=== PATIENT | female | born 1950 | race Caucasian/White ===

== ENCOUNTER 2020-11-07 12:37 | Outpatient (CLI) | payer MEDICARE, OTHER, SELFPAY ==
--- NOTE | 2020-11-08 07:59 | ONC CON_ITS ---
Dr. Farr New Patient Note Patient: Lucinda White Unit #: [id number]: [id number] Dicatated By: Shawn Farr M.D.Date of Visit: Nov 07, 2020 Onc MED New Patient/Consult Referring Physician: Dr. Sandoval Morley M.D. History of Present Illness: Ms. Lucinda White, 70-year-old female with a history of stage I, T1BN0 (0 out of 31 lymph nodes )adenocarcinoma of the lung involving left upper lobe, underwent left upper lobectomy with mediastinal lymph node dissection on December 08, 2017 in [facility], at that time no treatment was offered but observation as per patient she was following medical oncologist in [place] saw Dr. Pozo in June 2020, as per patient her CT scan of chest done in June showed no abnormality subsequently underwent CT scan of chest on October 12, 2020 at [facility] and it shows no acute findings in the chest, there is surgical clips in the left lung from previous left upper lobectomy, no mass no pleural effusion or thickening seen. Patient said she was having issues with chronic cough and it has improved significantly since she stopped taking lisinopril. Patient denies smoking, denies alcohol use, denies any hemoptysis or hematemesis, denies any bony pain denies any jaundice denies any headaches blurred vision or double vision but some dyspnea on exertion no palpitation or chest pain. Appetite is good, weight is stable. Past Medical History: Ms. White's medical history consists of hyperlipidemia and hypertension. Past Surgical History: Ms. White's surgical/procedural history consists of bilateral total knee arthroscopy, hysterectomy, left upper lobectomy, repair of left foot fracture, and right rotator cuff repair. Medications: Atorvastatin Calcium 1 Tablet (of 20 mg) Oral daily, Baclofen 1 Tablet (of 20 mg) Oral t.i.d. PRN, Hyzaar 1 Tablet (of 50-12.5 mg) Oral daily, Meloxicam 1 Tablet (of 15 mg) Oral daily, Mirapex 1 Tablet (of 1 mg) Oral daily, Sertraline HCl 1 Tablet (of 100 mg) Oral daily, traZODone HCl 1 Tablet (of 50 mg) Oral at bedtime Allergies: Sulfa Antibiotics and traMADol HCl. Social History: Ms. White is . Ms. White has never smoked. She has no history of drinking. Family History: Ms. White's mother at age 93: type II diabetes. Ms. White's father at age 84: heat disease. Ms. White has 2 brothers: 2 alive. She has 1 sister who is alive. Review Of Symptoms: Review of Systems is not available for this patient. Vital Signs: Performed on Nov 07, 2020 15:50: 7, 0, 27.88, 1.75 sq.m, 63 in, 97 %, 79 /min, 18 /min, 172/82 mm(hg) (HIGH), 98.2 F (LOW), and 157.4 lbs (HIGH). Performance Status: 0 - Fully active, able to carry on all predisease activities without restrictions. (ECOG) Physical Examination: Physical Exam is not available for this patient. Lab/Imaging: Most recent lab results are not available for this patient. Impression: T1b, N0, M0, stage I adenocarcinoma involving left upper lobe of the lung status post left upper lobectomy with mediastinal lymph node dissection on December 08, 2017 in [place], now being observed Essential hypertension Mixed anxiety and depression disorder Hyperlipidemia Chronic cough which is improving since she discontinued lisinopril CT scan of chest done on October 12, 2020 showed no acute changes and status post left upper lobectomy, no mass, no pleural effusion or thickening seen. Plan: Discussed with patient regarding her disease status and question concern, clinically, patient has no signs symptom suggestive of recurrence of disease and recently underwent follow-up CT scan of chest on October 12, 2020 which showed no evidence of recurrence of disease no abnormality seen, patient also had her follow-up mammogram done this year which was unremarkable As per patient she had her basic lab work-up done at [facility] recently so we will obtain records from there she will return to clinic in 6 months with CBC CMP and follow-up CT scan of chest. Patient was advised to call in case she has any evidence of new bony pains or jaundice or any new symptoms. Signed By: Shawn Farr M.D. <<Signature on File>>
== END 2020-11-07 12:38 | disposition home or self-care (01) ==
LOC: ONCMED 12:44
PROVIDERS: PCP Physician Assistant Medical; Visit Provider Internal Medicine Hematology & Oncology
DX: Z08 Encounter for follow-up examination after completed treatment for malignant neoplasm (principal); Z85.118 Personal history of other malignant neoplasm of bronchus and lung; Z79.899 Other long term (current) drug therapy
CPT/HCPCS: 99205

== ENCOUNTER → 2021-05-08 13:46 | Outpatient (BNVA) | payer OTHER, SELFPAY | PROVIDERS: PCP Physician Assistant Medical; Visit Provider Internal Medicine Critical Care Medicine | DX: R06.02 Shortness of breath (principal); Z85.118 Personal history of other malignant neoplasm of bronchus and lung | CPT/HCPCS: 99214 ==